=== PATIENT | male | born 1955 | race Caucasian/White ===

== ENCOUNTER 2017-01-30 09:56 | Emergency (ER) | payer OTHER ==
[~2017-01-30] VITALS: Ht 170.2 cm; Wt 74.8 kg
--- NOTE | 2017-01-30 10:02 | NUR ---
Patient ambulated to bed 03.
--- NOTE | 2017-01-30 10:03 | NUR ---
Dr. Santiago evaluating patient at bedside.
[2017-01-30] MEDS ORDERED: LIDOCAINE 1% 500 MG/50 ML VIAL INJ ONE (10:10)
--- NOTE | 2017-01-30 10:25 | NUR ---
61/M TO ED WITH LAC TO LEFT HAND USING [employer] EQUIPMENT. MULTIPLE LACERATIONS ON FINGERS 2,3,4 AND PALM OF HAND. PAIN 1/10. BLEEDING CONTROLLED. LUNGS CLEAR BILAT. HR EVEN AND REGULAR. AAOX4. VSS. NO SIGNS OF DISTRESS.
--- NOTE | 2017-01-30 10:53 | NUR ---
XRAY at bedside.
--- NOTE | 2017-01-30 11:00 | NUR ---
SUTURES AND DERMABOND PLACED BY ERMD
--- NOTE | 2017-01-30 11:12 | NUR ---
Patient discharged with v/s stable. Written and verbal after care instructions given and explained. Patient alert, oriented and verbalized understanding of instructions. Ambulatory with steady gait. All questions addressed prior to discharge. ID band removed. Patient advised to follow up with PMD. Rx of TYLENOL WITH CODEINE AND KEFLEX given. Patient educated on indication of medication including possible reaction and side effects. Opportunity to ask questions provided and answered.
[2017-01-30 11:14] VITALS: BP 151/96
== END 2017-01-30 11:12 | disposition home or self-care (01) ==
LOC: MED 09:56
DX: S61.213A Laceration without foreign body of left middle finger without damage to nail, initial encounter (principal); S61.215A Laceration without foreign body of left ring finger without damage to nail, initial encounter; S61.012A Laceration without foreign body of left thumb without damage to nail, initial encounter; S61.412A Laceration without foreign body of left hand, initial encounter; E78.00 Pure hypercholesterolemia, unspecified; W31.2XXA Contact with powered woodworking and forming machines, initial encounter; Y93.89 Activity, other specified; Y92.89 Other specified places as the place of occurrence of the external cause; Y99.8 Other external cause status
CPT/HCPCS: 12004; 73130; 90471; 90715; 99284; J2001; Q0092